=== PATIENT | female | born 2000 | race Caucasian/White ===

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

== ENCOUNTER → 2018-01-16 | Outpatient (CLI) | payer OTHER | LOC: BMCIMAGING 16:11 | PROVIDERS: ATTEND Internal Medicine Rheumatology | DX: J94.8 Other specified pleural conditions (principal) ==